=== PATIENT | male | born 1995 | race Caucasian/White ===

== ENCOUNTER 2017-11-17 19:42 | Emergency (ER) | payer SELFPAY ==
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
[2017-11-17 19:47] VITALS: BP 165/117
[2017-11-17] MEDS ORDERED: CEPHALEXIN MONO 500 MG CAP PO ONE (19:50)
[2017-11-17] MEDS ORDERED: CEPH500C24 PO (19:53)
== END 2017-11-17 20:02 ==
LOC: ER 19:47
DX: S01.81XA Laceration without foreign body of other part of head, initial encounter (principal); S60.222A Contusion of left hand, initial encounter; F10.129 Alcohol abuse with intoxication, unspecified; V49.9XXA Car occupant (driver) (passenger) injured in unspecified traffic accident, initial encounter
CPT/HCPCS: 99282